=== PATIENT | female | born 1970 | race Caucasian/White ===

== ENCOUNTER 2020-03-26 20:08 | Emergency (ER) | payer MEDICAID, SELFPAY ==
[2020-03-26 20:09] VITALS: BP 161/73; PULSE 88; RESP 15; TEMP 36.6; O2SAT 100; BMI 50.1
--- NOTE | 2020-03-26 20:23 | ED.VISSUMM ---
- ER Visit Summary Date of Service: 03/26/20 Chief Complaint: Tripped and fell History of Present Illness: The patient is a 49 F has medical history of prior TIAs, reflux, diabetes and hypertension. On no blood thinners. She is at a local grocery store and it was raining outside when she was walking through the parking lot she tripped and fell landing on her face. No LOC. No neck pain. Thinks she may have broken her nose. No severe headache. Prior to the fall she was feeling fine. Has not been recently ill. Was able to get up and walk around after the incident occurred. Physical Examination: Middle-aged female no acute distress. Sitting upright in bed. Vital signs are stable afebrile. H EENT exam pupils round reactive laser motions are intact. Mild swelling tenderness to the bridge of her nose with a superficial laceration which does not need to be repaired. There is no active bleeding or blood in nares. The nose is tender she and I discussed its could be fractured versus contused. It is not deformed. She has superficial abrasions and lacerations to her upper and lower lip none need to be repaired. Dentition is intact. Scalp nontender no hematoma no lacerations. C-spine nontender. Trachea midline. No lymphadenopathy. Full range of motion to her neck. Normal flexion-extension. Lungs clear to auscultation bilaterally. Chest wall nontender. Heart regular rhythm rate about 90 no murmur. Abdomen soft and nontender. Pelvic girdle intact. Nontender. Extremities moves all 4. Neurovascular intact. Normal range of motion. 5 out of 5 airport security screener strength. Both hands. Dorsi plantarflexion intact. Full flexion-extension of both shoulders, elbows and wrists. Normal flexion-extension of both hips, knees and ankles and feet. No deformities. Superficial abrasions to her knees. Back nontender. Spine nontender. Neurologically she is awake and alert with no focal motor deficits. GCS of 15. Awake alert. Following commands and answering her questions. Test Results: None. Discussed with patient clinically she does not need a CAT scan of her head. She did not want any x-rays and clinically I do not feel are necessary of her hand or knees. Emergency Department Course and Treatment: Clean her facial wounds. Tylenol. Treatment Plan: Wound care. Tylenol for pain. Ice to her face. Return if severe headache or intractable vomiting. Follow-up with your doctor as needed. Disposition: Discharge Impression: Acute trip and fall Acute nondisplaced nasal fracture Facial abrasions and contusions Knee contusions This note was generated with [employer] dictation software. It may contain incorrect words, spelling, and punctuation that were not noted in review of the chart prior to signing ED Disposition - Plan for ED Patient: Referrals: Toby Rapp MD [Primary Care Provider] -
--- NOTE | 2020-03-26 20:26 | ED.DEP ---
ED Disposition - Plan for ED Patient: Disposition: Home or Assisted Living Instructions: ED Mechanical Fall, ED NASAL CONTUSION vs FX No X-ray Referrals: Toby Rapp MD [Primary Care Provider] - 1 Week if not improving Additional Instructions: Tylenol for pain. Keep all wounds clean. Ice to your face, lips and nose. Return if severe headache or vomiting or follow-up with your primary care physician if not improving.
[2020-03-26] MEDS: Acetaminophen 500 MG Tablet 1000 MG PO (20:27)
== END 2020-03-26 20:41 | disposition home or self-care (01) ==
LOC: ED 20:35
PROVIDERS: Emergency Provider Emergency Medicine; PCP Family Medicine
DX: S02.2XXA Fracture of nasal bones, initial encounter for closed fracture (principal); S01.511A Laceration without foreign body of lip, initial encounter; S80.02XA Contusion of left knee, initial encounter; S80.01XA Contusion of right knee, initial encounter; W01.10XA Fall on same level from slipping, tripping and stumbling with subsequent striking against unspecified object, initial encounter; Y93.01 Activity, walking, marching and hiking; Y92.481 Parking lot as the place of occurrence of the external cause; Y99.9 Unspecified external cause status; E11.9 Type 2 diabetes mellitus without complications; I10 Essential (primary) hypertension; K21.9 Gastro-esophageal reflux disease without esophagitis; Z79.82 Long term (current) use of aspirin; Z79.4 Long term (current) use of insulin; Z79.899 Other long term (current) drug therapy; Z86.73 Personal history of transient ischemic attack (TIA), and cerebral infarction without residual deficits
CPT/HCPCS: 99283

== ENCOUNTER 2020-06-20 17:26 | Emergency (ER) | payer MEDICAID, SELFPAY ==
[2020-06-20 17:28] VITALS: BP 156/111; PULSE 87; RESP 17; TEMP 35.7; O2SAT 95; BMI 50.1
--- NOTE | 2020-06-20 19:08 | US_ITS ---
STUDY: VENOUS DOPPLER ULTRASOUND - RIGHT LOWER EXTREMITY REASON FOR EXAM: Female, 50 years old. Rt leg swelling lat rt calf pain TECHNIQUE: Ultrasound evaluation of the deep vein system to include cox-scale imaging and compression was performed. Cox-scale imaging and Doppler sonographic evaluation, including duplex spectral analysis and qualitative color flow sonography, was performed. COMPARISON: None. FINDINGS: Common Femoral Vein: Normal compression, spontaneity and augmentation. Normal color Doppler. Common Femoral Vein/Greater Saphenous Junction: Normal compression. Femoral Proximal: Normal compression. Femoral Middle: Normal compression, spontaneity and augmentation. Normal color Doppler. Femoral Distal: Normal compression. Popliteal Vein: Normal compression, spontaneity and augmentation. Normal color Doppler. Posterior Tibial Vein: Normal compression. Peroneal Vein: Normal compression. There are varicosities within the mid lateral calf region. US/Venous Duplex Imag/Limited/Uni IMPRESSION: No demonstrated deep vein thrombosis. Varicosities within the mid lateral calf. Electronically Signed: Anat Middleton MD at 19:45 EDT Tel , Service support ,
--- NOTE | 2020-06-20 19:12 | ED.DCSUM_ITS ---
History of Present Illness Chief Complaint: Edema Informant: Patient Onset: Days Context: Gradual Onset Timing: Continuous Narrative: Patient is a 50-year-old female with history of diabetes mellitus and peripheral neuropathy presenting with worsening pain and swelling of her right lower extremity. Her symptoms been going on for the past week. She denies any associated trauma. She states the pain is constant and aching in nature but worse when she goes to stand up or her feet hanging down. Seems be better with movement. Patient denies any associated shortness of breath, dyspnea on exertion or chest pain. She states she never had any like this before. She notes that she has had a fluctuating of her weight over the past week with 5 to 10 pounds. She tried an [id number] diuretic with no significant improvement of her symptoms. Compression stockings do seem to help. She has also had cramping of her calfs at night time. Patient denies any history of DVT or PE. She denies any recent immobilization or surgery. No other complaints at this time. Past Medical History - Allergies and Home Meds Allergies/Adverse Reactions: Allergies No Known Allergies Allergy (Verified 06/20/20 17:27) Primary Care Physician: Toby Rapp MD [Primary Care Provider] - Past Medical History: - - Peripheral neuropathy, DM Smoking Status: Former smoker Review of Systems General: Denies: Chills, Fever, Sweats Eyes: Denies: Visual changes - bilaterally, Diplopia ENT: Denies: Rhinorrhea, Sore throat Cardiovascular: Denies: Chest pain, Palpitations Respiratory: Denies: Dyspnea, Cough, Dyspnea on exertion Gastrointestinal: Denies: Abdominal pain, Nausea, Vomiting, Diarrhea, Melena, H ematochezia Genitourinary: Denies: Dysuria, Hematuria, Frequency Musculoskeletal: Reports: Swelling - RLE, Extremity Pain. Denies: Back pain Skin: Denies: Rash, Wounds Neurological: Denies: Headache, Weakness, Numbness Physical Exam Vital Signs/Narrative: Vital Signs Temp Pulse Resp BP Pulse Ox 06/20/20 17:28 96.2 F L 87 17 156/111 H 95 Inital Vital Signs reviewed: Yes General: Well nourished, Well developed, No Acute Distress Head: Normocephalic, Atraumatic Eyes: Perrl, EOMI ENT: Moist mucous membranes, No rhinorrhea Neck: Supple, Nontender, No JVD Cardiovascular: Regular rate, Regular rhythm, No murmurs Respiratory: No distress, CTA bilaterally, Chest nontender, - - no crackles Abdomen: Soft, Nontender, Nondistended, Normal bowel sounds Back: Nontender, Normal Inspection Extremities: Tenderness - right calf , Edema - right foot and calf , Calf Tenderness, - - lateral cord palpated. No erythema but associated warmth. Skin: Normal color, No rash Neurological: Alert, Oriented x3, Cranial nerves II-XII grossly intact, Normal Strength, Normal Sensation Psychological: Normal affect, Normal Mood Diagnostic/Tx/Re-eval Clinical Impression(s) from Imaging Studies Venous Duplex 06/20/20 19:08 IMPRESSION: No demonstrated deep vein thrombosis. Varicosities within the mid lateral calf. Electronically Signed: Anat Middleton MD at 19:45 EDT Tel , Service support , Laboratory Data 06/20/20 06/20/20 06/20/20 19:00 19:00 19:00 WBC 8.8 RBC 5.20 Hgb 14.6 Hct 45.0 MCV 86.5 MCH 28.1 MCHC 32.4 RDW Std Deviation 42.5 RDW Coeff of Kelechi 13.4 Plt Count 246 MPV 10.7 Immature Gran % (Auto) 0.300 Neut % (Auto) 50.8 Lymph % (Auto) 38.0 Mcminn % (Auto) 6.8 Eos % (Auto) 3.5 Baso % (Auto) 0.6 Absolute Neuts (auto) 4.5 Absolute Lymphs (auto) 3.34 Nucleated RBC % 0 Sodium 135 L Potassium 4.1 Chloride 100 Carbon Dioxide 31.0 Anion Gap 4 L BUN 18 Creatinine 0.85 Estim Creat Clear Calc 77.86 Est GFR (MDRD) Af Amer 91 Est GFR (MDRD) Non-Af 75 BUN/Creatinine Ratio 21.1 H Glucose 355 H Calcium 9.2 Troponin I < 0.015 B-Natriuretic Peptide 80.4 - Medical Decision Making Evaluated for 1 week of atraumatic lower extremity swelling. DVT scan is negative. Clinically patient does not appear to be fluid overloaded. She is not having crackles and is not having any respiratory symptoms. BNP is normal. She not have any significant electrolyte abnormalities. The exact cause of her edema is not clear however patient will be treated with a short course of Lasix instructed to follow-up with her primary care doctor. Her kidney function is normal. She is counseled on continued compression stockings and elevation. Patient is counseled on signs and symptoms requiring return to the emergency room. Patient verbalizes agreement and understand this plan. Patient discharged home in stable and improved condition. ED Disposition - Plan for ED Patient: Disposition: Home or Assisted Living Diagnosis: Peripheral edema Instructions: ED Peripheral Edema, Unilateral Prescriptions: Furosemide [Lasix] 20 mg PO DAILY #5 tab Transmission Status: Pending to [id number] Referrals: Toby Rapp MD [Primary Care Provider] - Additional Instructions: The exact cause of your leg swelling is not clear however your work-up today was negative for signs of fluid overload, electrolyte abnormalities or blood clot. Please follow-up with your primary care doctor. We will trial you on a prescription strength diuretic for 5 days to see if this improves her symptoms. Take it in the morning. Continue to elevate your leg is much as possible and wear compression stockings.
[2020-06-20 19:18] LABS: Absolute Lymphocyte Count 3.34 X10^3/uL (0.83-4.51); Absolute Neutrophil Count 4.5 X10^3/uL (2.0-7.7); Basophil# 0.05 X10^3/uL; Basophil% 0.6 % (0-1); Eosinophil# 0.31 X10^3/uL; Eosinophils% 3.5 % (0-5); Hemoglobin 14.6 g/dL (12.0-15.0); Lymphocyte # 3.34 X10^3/ul (4.0); Mean Corp Hgb Conc 32.4 g/dL (32-36); Mean Corpuscular Hgb 28.1 pg (27.0-32.0); Mean Corpuscular Volume 86.5 fL (81-99); Mean Platelet Vol. 10.7 fl (6.2-12.0); Monocyte% 6.8 % (0-10); NRBC Flagged by Analyzer 0 % (0-5); Neutrophil # 4.47 X10^3/uL (2.7-7.7); Neutrophil % 50.8 % (47-70); Platelet Count 246 K/mm3 (150-450); RBC Distribution Width CV 13.4 % (11.6-14.6); RBC Distribution Width SD 42.5 fl (35.1-43.9); White Blood Count 8.8 K/mm3 (4.4-11.0)
[2020-06-20 19:35] LABS: Anion Gap 4 (5-15); BUN 18 mg/dL (7-18); BUN/Creat Ratio 21.1 RATIO (10-20); Calcium,Total 9.2 mg/dL (8.5-10.1); Chloride 100 mmol/L (98-107); Creatinine, Serum 0.85 mg/dL (0.55-1.02); EST Glomerular Filtration Rate 75 mL/min (>60); Est Glom Filt Rate - Afr Amer 91 mL/min (>60); Estimated Creatinine Clearance 77.86 ml/min; Glucose 355 mg/dL (74-106); Potassium 4.1 mmol/L (3.5-5.1); Sodium Level 135 mmol/L (136-145)
[2020-06-20 20:09] LABS: BNP,B-Type NATRIURETIC PEPTIDE 80.4 pg/mL (0-100)
== END 2020-06-20 20:47 | disposition home or self-care (01) ==
PROVIDERS: Emergency Provider Emergency Medicine; PCP Family Medicine
DX: R60.0 Localized edema (principal); M79.89 Other specified soft tissue disorders; E11.42 Type 2 diabetes mellitus with diabetic polyneuropathy; Z79.82 Long term (current) use of aspirin; Z79.4 Long term (current) use of insulin; Z79.899 Other long term (current) drug therapy; Z87.891 Personal history of nicotine dependence
CPT/HCPCS: 80048; 83880; 84484; 85025; 93971; 99281; A4216

== ENCOUNTER 2021-08-26 19:45 | Emergency (ER) | payer MEDICAID, SELFPAY ==
[2021-08-26 19:45] VITALS: BP 110/52; PULSE 102; RESP 18; TEMP 36.5; O2SAT 98; BMI 47.0
--- NOTE | 2021-08-26 22:15 | EDS_ITS ---
HPI History of Present Illness Chief Complaint: Nosebleed Informant: patient Narrative Narrative: Recurrent right-sided epistaxis since noon today. No anticoagulation medicines. States he is on inside the house due to weather however not significant dry. Denies any digital manipulation. States when it happened she did pinch her nose and lean back. Did be blood into the back of her throat. Currently resolved. No previous similar symptoms in the past. Prior similar symptoms: No PFSH PFSH Medical History Diabetes GERD (gastroesophageal reflux disease) Hypertension Home Medications losartan [Cozaar] 25 mg PO DAILY 08/27/16 [History Last Taken 11/08/16] amitriptyline 25 mg PO QHS 08/26/21 [History Last Taken Unknown] dulaglutide [Trulicity] 3 mg SUBCUT QWEEK 08/26/21 [History Last Taken Unknown] omeprazole 20 mg PO DAILY 08/26/21 [History Last Taken Unknown] rosuvastatin 5 mg PO QHS 08/26/21 [History Last Taken Unknown] Allergy/AdvReac Type Severity Reaction Status Date / Time No Known Allergies Allergy Verified 06/20/20 17:27 Social History Smoking Status: Former smoker ROS ROS ED Constitutional Constitutional ED: Denies chills, fever(s) or sweats Eyes Eyes: Denies change in vision ENT ENT ED: Reports other Details: Right side epistaxis ; Denies dysphagia or sore throat Cardiovascular Cardiovascular: Denies chest pain, leg edema, palpitations or racing heartbeat Respiratory/Chest Respiratory/Chest: Denies cough, dyspnea or dyspnea on exertion Gastrointestinal Gastrointestinal: Denies abdominal pain, diarrhea, nausea or vomiting Genitourinary Genitourinary ED: Denies dysuria, hematuria or urinary frequency Musculoskeletal Musculoskeletal: Denies back pain, extremity pain or neck pain Integumentary Denies rash or wounds Neurologic Neurologic: Denies headache(s), paresthesias or weakness EXAM Physical Exam Const Vital Signs: 08/26/21 19:45 Temperature 97.7 F L Temperature Source Temporal Pulse Rate 102 H Respiratory Rate 18 Blood Pressure 110/52 L Blood Pressure Mean 71 Pulse Ox 98 Oxygen Delivery Method Room Air Positive well nourished and well developed General Appearance ED: well developed and NAD HEENT Reports moist mucous membranes HEENT Narrative: Left nare normal. Right nare evaluation very small abrasion anterior septum, there is no ulceration, no active bleeding. No posterior pharyngeal bleeding. Airway patent. normocephalic and atraumatic Eyes PERRL, EOMs intact bilaterally and conjunctivae normal General Eye ED: Yes normal appearance of both eyes Neck no lymphadenopathy and supple General: Negative for tenderness Chest Wall Chest: Negative for tenderness Resp normal respiratory effort and normal air movement Effort and Inspection: symmetric chest movement; Negative for respiratory distress Cardio regular rate, regular rhythm and no murmurs Peripheral Pulses: pulses 2+ throughout GI normal to inspection, nondistended, normoactive bowel sounds and non-tender Palpation: Negative for guarding or rebound tenderness present Back/Spine no CVA tenderness and no thoracic nor lumbar tenderness Extremity normal to inspection General Extremety ED: Negative for edema or tenderness General Extremity: Negative for edema Neuro oriented x3 and no sensory deficits noted Sensorium / Orientation: awake and alert Skin no rashes or lesions noted and no wounds MDM MDM MDM Narrative Medical decision making narrative: Patient nontoxic vital stable. Exam currently small pinpoint Right anterior septum. There is no active bleeding. I discussed management of recurrent bleeding. Nose clamp provided. Patient provided ENT follow-up as an outpatient. All questions were answered. Patient is being discharged under pandemic conditions under declared global, national and state disaster activation, with limited medical resources. Patient and community understands this. Results discussed in layman's terms to the patient satisfaction. All questions answered in layman's terms. Patient understands importance of follow-up care as directed. Patient has been instructed to return to the ED immediately if new symptoms, problems, or questions occur. We mutually agree with the plan of disposition. The patient understand that they may call or return with any questions or concerns at any t alba. Discharge Plan Triage Chief Complaint: Nosebleed ED Provider: Al Venegas Dx/Rx/DC Orders Clinical Impression: Right-sided epistaxis Instructions: ED Epistaxis (Adult) Prescriptions: No Action losartan [Cozaar] 50 MG tablet 25 mg PO DAILY RF: 0 amitriptyline 25 mg tablet 25 mg PO QHS RF: 0 omeprazole 20 mg capsule,delayed release(DR/EC) 20 mg PO DAILY RF: 0 rosuvastatin 5 mg tablet 5 mg PO QHS RF: 0 Trulicity 3 mg/0.5 mL pen injector 3 mg SUBCUT QWEEK RF: 0 Primary Care Provider: Toby Rapp Referrals: Orlando Cristobal MD [STAFF PHYSICIAN] - 1 Week Toby Rapp MD [Primary Care Provider] - Disposition Disposition: Home, Self Care Discharge Date/Time: 08/26/21 22:25
== END 2021-08-26 22:25 | disposition home or self-care (01) ==
LOC: ED 22:19
PROVIDERS: Emergency Provider Emergency Medicine; PCP Family Medicine; Visit Provider Emergency Medicine
DX: R04.0 Epistaxis (principal); E11.9 Type 2 diabetes mellitus without complications; I10 Essential (primary) hypertension; Z87.891 Personal history of nicotine dependence; Z79.899 Other long term (current) drug therapy; K21.9 Gastro-esophageal reflux disease without esophagitis
CPT/HCPCS: 99282

== ENCOUNTER 2021-10-16 17:42 | Emergency (ER) | payer MEDICAID, SELFPAY ==
[2021-10-16 17:43] VITALS: BP 187/86; PULSE 92; RESP 18; TEMP 36.8; O2SAT 96; BMI 50.1
--- NOTE | 2021-10-16 18:17 | EX.ED.DYSGE1 ---
HPI History of Present Illness Chief Complaint: Lower Extremity Injury Detail of Chief Complaint: Right foot swelling Informant: patient Onset/Context/Timing Onset: Today and Yesterday (Nocturnal cramps right calf last evening) Quality: Foot swelling and pain insertion site of Achilles tendon on the right Location: Poor quality Current Severity: Mild Worsened by: Walking Relieved by: Unknown Associated Symptoms Associated Symptoms: None Narrative Narrative: Patient is a 51-year-old morbidly obese woman who is undergone extensive work-up for bariatric surgery. She has a right bundle branch block and is undergoing a cardiac MRI prior to surgery. She has no history of DVT. She has no risk factors. She is meant been sedentary. She presently has no pain. She denies symptoms claudication. Prior similar symptoms: No Recent Illness/Hospitalization: No PFSH PFSH Medical History Diabetes GERD (gastroesophageal reflux disease) Hypertension Home Medications losartan [Cozaar] 25 mg PO DAILY 08/27/16 [History Last Taken 11/08/16] amitriptyline 25 mg PO QHS 08/26/21 [History Last Taken Unknown] dulaglutide [Trulicity] 3 mg SUBCUT QWEEK 08/26/21 [History Last Taken Unknown] omeprazole 20 mg PO DAILY 08/26/21 [History Last Taken Unknown] rosuvastatin 5 mg PO QHS 08/26/21 [History Last Taken Unknown] Allergy/AdvReac Type Severity Reaction Status Date / Time metformin Allergy Nausea/Vom/ Verified 10/16/21 17:45 Diarrhea Social History (Updated 10/16/21 @ 18:[address] Bi Ramsay MD) household members: spouse Smoking Status: Former smoker substance use type: does not use ROS ROS ED Constitutional Constitutional ED: Reports other Details: There is no history of cancer. ; Denies chills, fever(s), subjective, sweats or weight loss Musculoskeletal Musculoskeletal: Reports other Details: Neuropathy of her feet due to diabetes ; Denies arthralgias, myalgias or neck pain Integumentary Denies rash Neurologic Neurologic: Denies paresthesias or weakness Endocrine Endocrinology: Denies heat intolerance, polydipsia, polyphagia or polyuria EXAM Physical Exam Const Vital Signs: 10/16/21 17:43 Temperature 98.2 F Temperature Source Temporal Pulse Rate 92 Respiratory Rate 18 Blood Pressure 187/86 H Blood Pressure Mean 119 Pulse Ox 96 Oxygen Delivery Method Room Air Positive well nourished, well developed and obese General Appearance ED: well developed and NAD; Negative for pallor Nutritional Appearance: obese Eyes PERRL and EOMs intact bilaterally Resp normal respiratory effort Cardio regular rate and regular rhythm Extremity normal to inspection Extremity Narrative: There is tenderness at the insertion of the Achilles tendon. Having her plantar flex against resistance and palpation of the Achilles tendon causes some discomfort. There is no swelling of the foot. The right foot was measured and there is no difference between the right and left foot. DP and PT pulse are palpable. There is no effusion of the right or left ankle. There is no tenderness on the distribution deep venous system. There is no leg vein distention or palpable cords. Patient is well score for DVT is -2. General Extremety ED: Yes tenderness; Negative for edema General Extremity: Negative for edema Neuro oriented x3 Sensorium / Orientation: alert Psych mental status grossly normal Skin no rashes or lesions noted and no wounds General Skin Exam: Negative for jaundice or pallor MDM MDM MDM Narrative Medical decision making narrative: Patient has no swelling or neurovascular findings of her foot. She does have some discomfort due to neuropathy. There may be some irritation to the Achilles tendon. At this point will discharge to home. Discharge Plan Triage Chief Complaint: Lower Extremity Injury ED Provider: Bi Ramsay Dx/Rx/DC Orders Clinical Impression: Achilles tendon pain Prescriptions: No Action losartan [Cozaar] 50 MG tablet 25 mg PO DAILY RF: 0 amitriptyline 25 mg tablet 25 mg PO QHS RF: 0 omeprazole 20 mg capsule,delayed release(DR/EC) 20 mg PO DAILY RF: 0 rosuvastatin 5 mg tablet 5 mg PO QHS RF: 0 Trulicity 3 mg/0.5 mL pen injector 3 mg SUBCUT QWEEK RF: 0 Primary Care Provider: Toby Rapp Referrals: Toby Rapp MD [Primary Care Provider] - As Needed Disposition Disposition: Home, Self Care
== END 2021-10-16 18:36 | disposition home or self-care (01) ==
LOC: ED 18:27
PROVIDERS: Emergency Provider Emergency Medicine; PCP Family Medicine; Visit Provider Emergency Medicine
DX: M79.661 Pain in right lower leg (principal); E11.40 Type 2 diabetes mellitus with diabetic neuropathy, unspecified; E66.01 Morbid (severe) obesity due to excess calories; M79.89 Other specified soft tissue disorders; I10 Essential (primary) hypertension; K21.9 Gastro-esophageal reflux disease without esophagitis; Z79.899 Other long term (current) drug therapy; Z87.891 Personal history of nicotine dependence
CPT/HCPCS: 99282